=== PATIENT | male | born 2000 | race Caucasian/White ===

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

== ENCOUNTER 2019-01-02 11:18 | Emergency (ER) | payer MEDICAID ==
--- NOTE | 2019-01-02 11:30 | ED Physician Chart ---
ED Chief Complaint/HPI - Patient Information Date Seen:: 01/02/19 Time Seen:: 11:25 Chief Complaint:: Redness in his left upper eyelid for one day. History of Present Illness:: Pt came in by private auto because of redness in left upper eyelid on awakening yesterday. No visual changes in terms of blurry vision or diplopia. No eye pain. No N/V. No fever. Allergies:: Allergies Allergy/AdvReac Type Severity Reaction Status Date / Time No Known Allergies Allergy Verified 11/16/16 20:38 Vitals:: see nurse note. Historian:: Patient Family MD/PCP:: Dr. Manley LMP:: N/A Review:: Nurse's Note Reviewed ED Review of Systems - Review of Systems General/Constitutional: No fever, No chills, No weight loss, No weakness, No edema, No loss of appetite Skin: No rash Head: No headache, No light-headedness Eyes: No loss of vision, No pain, No diplopia ENT: No earache, No nasal drainage, No sore throat Neck: No neck pain, No swelling, No stiffness Cardio Vascular: No chest pain, No palpitations, No edema Pulmonary: No SOB, No cough, No wheezing GI: No nausea, No vomiting, No pain G/U: No dysuria, No frequency Musculoskeletal: No bone or joint pain Psychiatric: No prior psych history Hematopoietic: No bruising, No lymphadenopathy Allergic/Immuno: No urticaria, No angioedema Neurological: No syncope, No focal symptoms, No weakness, No headache, No confusion ED Past Medical History - Past Medical History Past Medical History: HTN (?) Family History: Diabetes Melitus Social History: Smoker (Pt has been informed about health risks associated with tobacco use and has been advised to quit. Pt has been encouraged to enroll in a smoking cessation program. Pt acknowledges understanding.), Alcohol (occasional use), No Drug Use, Single, Lives With Parents, Employed Surgical History: None Psychiatricy History: None Medication: None Family Medical History - Family Member Maternal Grandmother History Unknown: Yes Ethnicity: Living Status: Still Living Hx Family Hypertension: Yes Hx Family Diabetes: Yes ED Physical Exam - Physical Examination General/Constitutional: Awake, Well-developed, well-nourished, Alert, No distress, Non-toxic appearing, Ambulatory Other Gen/Cons comments:: Breathes comfortably, speaks clearly, and interacts normally. Head: Atraumatic Eyes: PERRL, EOMI Other Eyes comments:: Mild erythema noticed in L upper eyelid with mild swelling. No open wound or unusual warmth. No red streaking. No exudate. There is no hyperemia or swelling in bulbar conjunctiva. No exudate. Skin: Nl inspection, No ecchymosis, Well hydrated, No lymphadenopathy ENMT: Nasal exam nl, Oropharynx nl Neck: Nontender, Full ROM w/o pain, No nuchal rigidity, No stridor Respiratory: Nl effort/Exclusion, Clear to Auscultation, No Wheeze/Rhonchi/Rales Cardio Vascular: RRR, No murmur, gallop, rubs, Carotid/Femoral/Distal pulses equal bilaterally GI: No tenderness/rebounding/guarding, No organomegaly, Normal BS's, Nondistended, No mass/bruits Extremities: No tenderness or effusion, normal strength in all extremities, No edema Neuro/Psych: Alert/oriented (oriented x 3), Mood normal, Normal gait, No focal deficits ED Septic Shock - . Is Septic Shock (SBP<90, OR Lactate>4 mmol\L) present?: No ED Reassessment (Disposition) - Reassessment Reassessment:: 1237 Pt remains stable. Repeat BP 154/90, P 82. Pt states that he has h/o elevated BP and has been followed with PCP Dr. Manley. Pt does not want further evaluation of his BP. Pt states that he prefer to see his PCP Dr. Manley tomorrow to be evaluated further and to discuss about his antihypertensive therapy. Pt feels well and does not want further observation/ management in hospital. Aftercare instructions have been given. Reassessment Condition:: Improved - Diagnosis Diagnosis:: Left blepharitis/upper eyelid infection. Stable. H/O elevated BP/hypertension. Repeat BP prior to discharge is 154/90. Pt prefers to be further evaluated by PCP Dr. Manley tomorrow for further management. - Aftercare/Follow up Instructions Aftercare/Follow-Up Instructions:: Refer to Discharge Instructions Notes:: Warm compress to be applied to left eye for 15 minutes every 1-2 hours as directed. F/U with PCP Dr. Manley in one day for recheck. Return to ER immediately if condition worsens or if any further questions/problems. Medication Prescribed:: Erythromycin ophthalmic ointment applied topically to left eye as directed q8h. D-one tube R-0 Bactrim DS one tab po q12h for 10 days. D-20 R-0 - Patient Disposition Discharge/Transfer:: Home Time:: 12:40 Condition at Disposition:: Stable, Improved
[2019-01-02] MEDS ORDERED: Sulfamethoxazole/TMP 800/160mg Tab PO ONE (11:47)
[2019-01-02] MEDS ORDERED: Sulfamethoxazole/TMP 800/160mg Tab ONE (11:52)
== END 2019-01-02 12:40 | disposition home or self-care (01) ==
LOC: ER 11:18
DX: H01.004 Unspecified blepharitis left upper eyelid (principal); I10 Essential (primary) hypertension; F17.200 Nicotine dependence, unspecified, uncomplicated
CPT/HCPCS: Z7502